=== PATIENT | male | born 1965 | race Asian ===

== ENCOUNTER 2025-05-27 09:23 | Emergency (ER) | payer MEDICAID ==
[~2025-05-27] VITALS: Ht 162.6 cm; Wt 68.0 kg
[2025-05-27 09:29] VITALS: O2SAT 98
[2025-05-27 13:52] VITALS: BP 156/91; PULSE 99; RESP 14; TEMP 36.8; O2SAT 99
== END 2025-05-27 14:10 | disposition home or self-care (01) ==
LOC: ER 09:23
DX: H53.2 Diplopia (principal); E11.9 Type 2 diabetes mellitus without complications
CPT/HCPCS: 99283